=== PATIENT | female | born 1945 | race Caucasian/White ===

== ENCOUNTER 2016-09-14 08:28 | Day surgery (SDC) | payer MEDICARE ==
[2016-09-12 09:09] VITALS: BMI 36.6
[~2016-09-14 08:28] MED LIST: LACTATED RINGERS 1,000 ML IV SCH
[2016-09-14 09:19] VITALS: TEMP 97.1
[2016-09-14] MEDS ORDERED: PROPOFOL 10 MG/ML 20 ML VIAL IV ONE (09:28)
--- NOTE | 2016-09-14 09:47 | P.PCN ---
Date of Procedure: 09/14/16 Procedure(s) Performed: Brief history: Patient is a pleasant 71-year-old white female, scheduled for an elective upper endoscopy as well as colonoscopy as a part of evaluation of abdominal pain, change in bowel habits for the last 6 months duration. Procedure performed: Esophagogastroduodenoscopy with biopsy Colonoscopy Preoperative diagnosis: Abdominal pain Change in bowel habits Anesthesia: MAC Procedure: After informed consent was obtained from the patient was brought into the endoscopy unit and IV conscious sedation was administered by anesthesia under continuous monitoring. Initially upper endoscopy was done. The Olympus GF 160 video endoscope was inserted inserted into the mouth and esophagus intubated without any difficulty and was gradually advanced into the stomach and duodenum and carefully examined. The bulb and second part of the duodenum appeared normal. The scope was then withdrawn into the stomach adequately insufflated with air and upon careful examination the antrum had mild diffuse gastritis and biopsies were done from this area. The body, cardia and fundus appeared normal. The scope was then withdrawn into the esophagus. Mall hiatal hernia noted. The GE junction was located at 36 cm to the incisors. there was a 1 cm GE junction polyp identified and multiple biopsies were done from this area. The GE junction appeared regular with no erythema erosions or ulcerations. Rest of the esophagus appeared normal. Patient tolerated the procedure well. At this time the patient continued to remain sedation. Initial digital rectal examination was normal. Olympus CF 160 video colonoscope was then inserted into the rectum and gradually advanced to the cecum without any difficulty. Careful examination was performed as the scope was gradually being withdrawn. The prep was excellent. The cecum, ascending colon, transverse colon, descending colon, sigmoid colon and rectum appeared normal. diffuse scattered diverticulosis seen. Retroflexion was performed in the rectum andmild rectal prolapse was noted. Patient tolerated the procedure well. Impression: 1. Upper endoscopy revealed 1 cm GE junction polyp status post biopsy, small hiatal hernia and mild antral gastritis. 2. Colonoscopy revealed diffuse scattered diverticulosis and mild rectal prolapse Recommendations: Findings of this examination were discussed with the patient as well as her family. She was advised to follow with the biopsy results. She'll be seen in office in 2 weeks.
[2016-09-14 09:52] VITALS: RESP 16
[2016-09-14 10:11] VITALS: BP 125/70; PULSE 68
== END 2016-09-14 10:50 | disposition home or self-care (01) ==
LOC: ORWHC2ENDO 08:28
PROVIDERS: ATTEND Internal Medicine Gastroenterology
DX: K29.50 Unspecified chronic gastritis without bleeding (principal); D13.0 Benign neoplasm of esophagus; K20.0 Eosinophilic esophagitis; K44.9 Diaphragmatic hernia without obstruction or gangrene; K57.30 Diverticulosis of large intestine without perforation or abscess without bleeding; K62.3 Rectal prolapse; I10 Essential (primary) hypertension; I48.91 Unspecified atrial fibrillation; Z79.01 Long term (current) use of anticoagulants; Z79.899 Other long term (current) drug therapy; Z88.5 Allergy status to narcotic agent
CPT/HCPCS: 88305; 88312; 88342; 45378; 43239; J2704

== ENCOUNTER → 2016-10-25 | Outpatient (CLI) | payer MEDICARE, OTHER ==
[2016-10-25 11:24] LABS: Blood Urea Nitrogen 14 mg/dL (7-17); Non-African American GFR(MDRD) >60 (>60 ml/min/1.73 sqM)
--- NOTE | 2016-10-25 13:01 | CT ---
EXAMINATION TYPE: CT abdomen pelvis w con DATE OF EXAM: 10/25/2016 12:49 PM COMPARISON: 01/16/2015 INDICATION: Right upper quadrant DLP: 1470.5 mGycm, Automated exposure control for dose reduction was used. CONTRAST: 100 mL of Omnipaque 300. Study performed with Oral Contrast TECHNIQUE: Axial images were obtained from above the diaphragm to the pubic rami in the axial plane a t 5 mm thick sections. Reconstructed images are reviewed on the computer in the coronal plane. FINDINGS: Limited CT sections are obtained the lung bases. The lung bases are clear. Reflux of the distal eso phagus is evident. CT ABDOMEN: Liver: Several scattered hypodensities are present throughout the liver. These appear to have low den sity center suggestive for hepatic cysts. Spleen: Splenic cyst may be present. Couple of punctate calcified granuloma may be present. Pancreas: Normal Adrenal glands: The adrenal glands are normal. Gallbladder: Surgically absent Kidneys: No masses are evident. No hydronephrosis is present. Cortical renal cyst in the medial inf erior left kidney measuring 20 Hounsfield units and 1.4 cm in diameter. Delayed images were obtained through the kidneys, which remain unremarkable. Aorta: Vascular calcification is within the aorta. Inferior vena cava: Normal. CT PELVIS: Loops of bowel within the abdomen and pelvis are normal. There are loops of bowel which are incom pletely distended or lack oral contrast limiting their evaluation. Appendix: Normal as visualized. Urinary bladder: Normal. Genitourinary structures: Uterus and adnexal regions are normal Osseous structures: No suspicious lytic or sclerotic lesions. Facet changes are present within the daniel mbar spine. Suspicious abnormality under the right rib region where the patient complains of pain is not evident. Note is made of metallic foreign body within the musculature at the level of the liver. Series 3 image 24. IMPRESSIONS: 1. Renal cyst on left. Multiple hepatic cysts and probable splenic cysts are also present. 2. Suspicious abnormality right upper quadrant not identified. Old Radiopaque foreign body is within the musculature.
== END | disposition home or self-care (01) ==
LOC: RADCTMAIN 10:51
PROVIDERS: ATTEND Internal Medicine Gastroenterology
DX: N28.1 Cyst of kidney, acquired (principal); K76.89 Other specified diseases of liver
CPT/HCPCS: 82565; 84520; 74177; 36415; Q9967

== ENCOUNTER 2019-11-29 19:12 | Emergency (ER) | payer MEDICARE, OTHER ==
[2019-11-29 19:46] LABS: Basophils % (A) 0 %; Eosinophils # (A) 0.2 k/uL (0-0.7); Eosinophils % (A) 2 %; HCT 43.9 % (34.0-46.0); HGB 14.8 gm/dL (11.4-16.0); Lymphocytes # (A) 1.2 k/uL (1.0-4.8); Lymphocytes % (A) 12 %; MCH 29.8 pg (25.0-35.0); MCHC 33.8 g/dL (31.0-37.0); MCV 88.3 fL (80.0-100.0); Mean Platelet Volume 8.8; Monocytes # (A) 0.5 k/uL (0-1.0); Monocytes % (A) 5 %; Neutrophils # (A) 7.7 k/uL (1.3-7.7); Neutrophils % (A) 79 %; Platelet Count 150 k/uL (150-450); RBC 4.97 m/uL (3.80-5.40); RDW 14.1 % (11.5-15.5); WBC 9.7 k/uL (3.8-10.6)
[2019-11-29 19:50] LABS: Glucose,Whole Blood 109 mg/dL (75-99)
[2019-11-29 19:53] LABS: INR 2.2 (<1.2); Partial Thromboplastin Time 35.8 sec (22.0-30.0); Prothrombin Time 21.8 sec (9.0-12.0)
[2019-11-29 19:56] LABS: ALT 17 U/L (4-34); AST 28 U/L (14-36); African American GFR (CKD) >90 (>60 ml/min/1.73 sqM); Alcohol <10 mg/dL; Alkaline Phosphatase 68 U/L (38-126); Amylase 54 U/L (30-110); Anion Gap 6 mmol/L; Blood Urea Nitrogen 18 mg/dL (7-17); Carbon Dioxide 26 mmol/L (22-30); Chloride 105 mmol/L (98-107); Glucose 112 mg/dL (74-99); Non-African American GFR(CKD) 85 (>60 ml/min/1.73 sqM); Potassium 4.2 mmol/L (3.5-5.1); Sodium 137 mmol/L (137-145); Total Bilirubin 0.5 mg/dL (0.2-1.3); Total Protein 6.9 g/dL (6.3-8.2)
[2019-11-29 20:01] VITALS: RESP 16
[2019-11-29 20:06] LABS: Creatine Kinase MB 2.9 ng/mL (0.0-2.4); Troponin I 0.034 ng/mL (0.000-0.034)
--- NOTE | 2019-11-29 20:06 | CT ---
EXAMINATION TYPE: CT brain cspine wo con DATE OF EXAM: 11/29/2019 COMPARISON: 10/21/2014 HISTORY: fall Headache. Neck pain. CT DLP: 1516.4 mGycm Automated exposure control for dose reduction was used. There is some cerebral cortical atrophy. There is no mass effect nor midline shift. There is no sign of intracranial hemorrhage. The calvarium is intact. There is 2 cm mucous retention cyst right side s phenoid sinus. Cervical vertebra have normal alignment. Disc spaces are fairly normal. Posterior elements are intact . There is mild hypertrophic multilevel facet arthropathy. IMPRESSION: No acute abnormality of the cervical spine. No fracture. Negative CT scan of the brain. Brain unchanged compared to old exam.
--- NOTE | 2019-11-29 20:08 | ED ---
Trauma HPI - General Chief Complaint: Trauma Stated Complaint: Fall Time Seen by Provider: 11/29/19 19:20 Source: patient Mode of arrival: wheelchair Limitations: physical limitation - History of Present Illness Initial Comments: The patient is a 74-year-old female with past history of A. fib on Coumadin who presents emergency department after she fell off of a boat ladder and hit her head. She states she was climbing down from her nephew spoke which was on top of a trailer when she slipped, fell backwards and hit her head on the propeller. The patient does take Coumadin for her A. fib. She denies loss of consciousness. No headache, visual changes or neck pain. She reports that she fell onto her left side. Patient has left-sided flank pain, left shoulder abrasion and left knee pain. She took a dose of Tylenol prior to coming into the emergency room and. States that she didn't want to be seen however her forced her to come in. She denies any numbness, tingling or weakness in her extremities. She has been able to ambulate, slowly. Denies chest pain or shortness of breath. No abdominal pain. There are no other alleviating, precipitating or modifying factors - Related Data Home Medications Medication Instructions Recorded Confirmed Metoprolol Succinate [Toprol XL] 12.5 mg PO HS 01/16/15 09/14/16 Lisinopril [Zestril] 30 mg PO HS 09/12/16 09/14/16 Warfarin [Coumadin] 2.5 mg PO DAILY 09/12/16 09/14/16 amLODIPine [Norvasc] 10 mg PO DAILY 09/12/16 09/14/16 Allergies Allergy/AdvReac Type Severity Reaction Status Date / Time codeine Allergy Rapid Verified 11/29/19 20:01 Heart Rate Review of Systems ROS Statement: Those systems with pertinent positive or pertinent negative responses have been documented in the HPI. ROS Other: All systems not noted in ROS Statement are negative. Past Medical History Past Medical History: Atrial Fibrillation, Hypertension Additional Past Medical History / Comment(s): pain upper rt abdomen, "precancer" on arm History of Any Multi-Drug Resistant Organisms: None Reported Past Surgical History: Cholecystectomy Additional Past Surgical History / Comment(s): D&C Past Anesthesia/Blood Transfusion Reactions: No Reported Reaction Past Psychological History: No Psychological Hx Reported Smoking Status: Never smoker Past Alcohol Use History: None Reported Past Drug Use History: None Reported - Past Family History Mother Family Medical History: Cancer General Exam Limitations: physical limitation Course Vital Signs 11/29/19 11/29/19 19:17 22:25 Temperature 97.9 F 98.0 F Pulse Rate 60 58 L Respiratory 16 16 Rate Blood Pressure 216/82 168/88 O2 Sat by Pulse 96 98 Oximetry Medical Decision Making - Medical Decision Making Upon arrival the patient is probably placed in trauma bay 1. She has a fall from a height on anticoagulants and therefore she is activated as a level II trauma. Initial assessment demonstrates the airways pain. Patient has bilateral breath sounds. Facility assessed the patient is alert and oriented 3. Patient does have a hematoma noted to the left occiput. A small abrasion is noted without significant laceration. No neck pain and therefore cervical spine is cleared using NEXUS criteria. Patient is a sent over for a CT of her brain and cervical spine. I also performed x-rays the patient's left scapula, pelvis, chest x-ray with left rib study and left knee x-ray. Laboratory studies demonstrate a therapeutic INR 2.2. Hemoglobin 14.8. CK mildly elevated at 222. CT brain demonstrates no acute intracranial process. Nose cervical spine fractures. No appreciable fractures in the left scapula, ribs or left knee. Patient is able to get up and ambulate. I did perform a FAST exam which was negative on the patient. Patient feels comfortable with discharge at this time. She is to follow up with primary care physician. I informed her if she has any continued pain she may need repeat imaging for its patient understood. If she has any new or worsening symptoms she should return to the emergency room. Patient was in agreement treatment plan she is discharged home in stable condition - Lab Data Result diagrams: 11/29/19 19:32 11/29/19 19:32 Lab Results 11/29/19 11/29/19 11/29/19 Range/Units 19:32 19:32 19:32 WBC 9.7 (3.8-10.6) k/uL RBC 4.97 (3.80-5.40) m/uL Hgb 14.8 (11.4-16.0) gm/dL Hct 43.9 (34.0-46.0) % MCV 88.3 (80.0-100.0) fL MCH 29.8 (25.0-35.0) pg MCHC 33.8 (31.0-37.0) g/dL RDW 14.1 (11.5-15.5) % Plt Count 150 (150-450) k/uL Neutrophils % 79 % Lymphocytes % 12 % Monocytes % 5 % Eosinophils % 2 % Basophils % 0 % Neutrophils # 7.7 (1.3-7.7) k/uL Lymphocytes # 1.2 (1.0-4.8) k/uL Monocytes # 0.5 (0-1.0) k/uL Eosinophils # 0.2 (0-0.7) k/uL Basophils # 0.0 (0-0.2) k/uL PT (9.0-12.0) sec INR (<1.2) APTT (22.0-30.0) sec Sodium 137 (137-145) mmol/L Potassium 4.2 (3.5-5.1) mmol/L Chloride 105 (98-107) mmol/L Carbon Dioxide 26 (22-30) mmol/L Anion Gap 6 mmol/L BUN 18 H (7-17) mg/dL Creatinine 0.68 (0.52-1.04) mg/dL Est GFR (CKD-EPI)AfAm >90 (>60 ml/min/1.73 sqM) Est GFR (CKD-EPI)NonAf 85 (>60 ml/min/1.73 sqM) Glucose 112 H (74-99) mg/dL POC Glucose (mg/dL) (75-99) mg/dL POC Glu Pipe Smoking Machine Offbearer ID Plasma Lactic Acid Vicente (0.7-2.0) mmol/L Calcium 10.0 (8.4-10.2) mg/dL Total Bilirubin 0.5 (0.2-1.3) mg/dL AST 28 (14-36) U/L ALT 17 (4-34) U/L Alkaline Phosphatase 68 (38-126) U/L Total Creatine Kinase 222 H (30-135) U/L CK-MB (CK-2) 2.9 H (0.0-2.4) ng/mL CK-MB (CK-2) Rel Index 1.3 Troponin I 0.034 (0.000-0.034) ng/mL Total Protein 6.9 (6.3-8.2) g/dL Albumin 4.0 (3.5-5.0) g/dL Amylase 54 (30-110) U/L Lipase 84 (23-300) U/L Urine Color Urine Appearance (Clear) Urine pH (5.0-8.0) Ur Specific [place] (1.001-1.035) Urine Protein (Negative) Urine Glucose (UA) (Negative) Urine Ketones (Negative) Urine Blood (Negative) Urine Nitrite (Negative) Urine Bilirubin (Negative) Urine Urobilinogen (<2.0) mg/dL Ur Leukocyte Esterase (Negative) Urine Opiates Screen (NotDetected) Ur Oxycodone Screen (NotDetected) Urine Methadone Screen (NotDetected) Ur Propoxyphene Screen (NotDetected) Ur Barbiturates Screen (NotDetected) U Tricyclic Antidepress (NotDetected) Ur Phencyclidine Scrn (NotDetected) Ur Amphetamines Screen (NotDetected) U Methamphetamines Scrn (NotDetected) U Benzodiazepines Scrn (NotDetected) Urine Cocaine Screen (NotDetected) U Marijuana (THC) Screen (NotDetected) Serum Alcohol <10 mg/dL Blood Type Blood Type Confirm Blood Type Recheck Bld Type Recheck Status Antibody Screen Spec Expiration Date 11/29/19 11/29/19 11/29/19 Range/Units 19:32 19:32 19:32 WBC (3.8-10.6) k/uL RBC (3.80-5.40) m/uL Hgb (11.4-16.0) gm/dL Hct (34.0-46.0) % MCV (80.0-100.0) fL MCH (25.0-35.0) pg MCHC (31.0-37.0) g/dL RDW (11.5-15.5) % Plt Count (150-450) k/uL Neutrophils % % Lymphocytes % % Monocytes % % Eosinophils % % Basophils % % Neutrophils # (1.3-7.7) k/uL Lymphocytes # (1.0-4.8) k/uL Monocytes # (0-1.0) k/uL Eosinophils # (0-0.7) k/uL Basophils # (0-0.2) k/uL PT 21.8 H (9.0-12.0) sec INR 2.2 H (<1.2) APTT 35.8 H (22.0-30.0) sec Sodium (137-145) mmol/L Potassium (3.5-5.1) mmol/L Chloride (98-107) mmol/L Carbon Dioxide (22-30) mmol/L Anion Gap mmol/L BUN (7-17) mg/dL Creatinine (0.52-1.04) mg/dL Est GFR (CKD-EPI)AfAm (>60 ml/min/1.73 sqM) Est GFR (CKD-EPI)NonAf (>60 ml/min/1.73 sqM) Glucose (74-99) mg/dL POC Glucose (mg/dL) (75-99) mg/dL POC Glu Pipe Smoking Machine Offbearer ID Plasma Lactic Acid Vicente 1.1 (0.7-2.0) mmol/L Calcium (8.4-10.2) mg/dL Total Bilirubin (0.2-1.3) mg/dL AST (14-36) U/L ALT (4-34) U/L Alkaline Phosphatase (38-126) U/L Total Creatine Kinase (30-135) U/L CK-MB (CK-2) (0.0-2.4) ng/mL CK-MB (CK-2) Rel Index Troponin I (0.000-0.034) ng/mL Total Protein (6.3-8.2) g/dL Albumin (3.5-5.0) g/dL Amylase (30-110) U/L Lipase (23-300) U/L Urine Color Urine Appearance (Clear) Urine pH (5.0-8.0) Ur Specific [place] (1.001-1.035) Urine Protein (Negative) Urine Glucose (UA) (Negative) Urine Ketones (Negative) Urine Blood (Negative) Urine Nitrite (Negative) Urine Bilirubin (Negative) Urine Urobilinogen (<2.0) mg/dL Ur Leukocyte Esterase (Negative) Urine Opiates Screen (NotDetected) Ur Oxycodone Screen (NotDetected) Urine Methadone Screen (NotDetected) Ur Propoxyphene Screen (NotDetected) Ur Barbiturates Screen (NotDetected) U Tricyclic Antidepress (NotDetected) Ur Phencyclidine Scrn (NotDetected) Ur Amphetamines Screen (NotDetected) U Methamphetamines Scrn (NotDetected) U Benzodiazepines Scrn (NotDetected) Urine Cocaine Screen (NotDetected) U Marijuana (THC) Screen (NotDetected) Serum Alcohol mg/dL Blood Type A Positive Blood Type Confirm Blood Type Recheck No Previous Record Bld Type Recheck Status CABO Indicated Antibody Screen NEGATIVE Spec Expiration Date 12/02/2019233111/29/19 11/29/19 11/29/19 Range/Units 19:33 19:38 19:56 WBC (3.8-10.6) k/uL RBC (3.80-5.40) m/uL Hgb (11.4-16.0) gm/dL Hct (34.0-46.0) % MCV (80.0-100.0) fL MCH (25.0-35.0) pg MCHC (31.0-37.0) g/dL RDW (11.5-15.5) % Plt Count (150-450) k/uL Neutrophils % % Lymphocytes % % Monocytes % % Eosinophils % % Basophils % % Neutrophils # (1.3-7.7) k/uL Lymphocytes # (1.0-4.8) k/uL Monocytes # (0-1.0) k/uL Eosinophils # (0-0.7) k/uL Basophils # (0-0.2) k/uL PT (9.0-12.0) sec INR (<1.2) APTT (22.0-30.0) sec Sodium (137-145) mmol/L Potassium (3.5-5.1) mmol/L Chloride (98-107) mmol/L Carbon Dioxide (22-30) mmol/L Anion Gap mmol/L BUN (7-17) mg/dL Creatinine (0.52-1.04) mg/dL Est GFR (CKD-EPI)AfAm (>60 ml/min/1.73 sqM) Est GFR (CKD-EPI)NonAf (>60 ml/min/1.73 sqM) Glucose (74-99) mg/dL POC Glucose (mg/dL) 109 H (75-99) mg/dL POC Glu Pipe Smoking Machine Offbearer ID Leighann Martinez Plasma Lactic Acid Vicente (0.7-2.0) mmol/L Calcium (8.4-10.2) mg/dL Total Bilirubin (0.2-1.3) mg/dL AST (14-36) U/L ALT (4-34) U/L Alkaline Phosphatase (38-126) U/L Total Creatine Kinase (30-135) U/L CK-MB (CK-2) (0.0-2.4) ng/mL CK-MB (CK-2) Rel Index Troponin I (0.000-0.034) ng/mL Total Protein (6.3-8.2) g/dL Albumin (3.5-5.0) g/dL Amylase (30-110) U/L Lipase (23-300) U/L Urine Color Light Yellow Urine Appearance Clear (Clear) Urine pH 6.5 (5.0-8.0) Ur Specific [place] 1.005 (1.001-1.035) Urine Protein Negative (Negative) Urine Glucose (UA) Negative (Negative) Urine Ketones Negative (Negative) Urine Blood Negative (Negative) Urine Nitrite Negative (Negative) Urine Bilirubin Negative (Negative) Urine Urobilinogen <2.0 (<2.0) mg/dL Ur Leukocyte Esterase Negative (Negative) Urine Opiates Screen Not Detected (NotDetected) Ur Oxycodone Screen Not Detected (NotDetected) Urine Methadone Screen Not Detected (NotDetected) Ur Propoxyphene Screen Not Detected (NotDetected) Ur Barbiturates Screen Not Detected (NotDetected) U Tricyclic Antidepress Not Detected (NotDetected) Ur Phencyclidine Scrn Not Detected (NotDetected) Ur Amphetamines Screen Not Detected (NotDetected) U Methamphetamines Scrn Not Detected (NotDetected) U Benzodiazepines Scrn Not Detected (NotDetected) Urine Cocaine Screen Not Detected (NotDetected) U Marijuana (THC) Screen Not Detected (NotDetected) Serum Alcohol mg/dL Blood Type Blood Type Confirm A Positive Blood Type Recheck Bld Type Recheck Status Antibody Screen Spec Expiration Date - EKG Data EKG Comments: EKG demonstrates a sinus bradycardia with a ventricular rate of 59. SC interval is 158. QRS E4. QTC of 41. The signal elevations or depressions concerning for ischemic changes. Disposition Clinical Impression: Fall, On Coumadin for atrial fibrillation, Left knee pain, Left flank pain, Blunt head trauma Disposition: HOME SELF-CARE Condition: Stable Instructions (If sedation given, give patient instructions): Head Injury (ED) Additional Instructions: Please follow up with your primary care doctor. Return to the emergency room for any new or worsening symptoms Is patient prescribed a controlled substance at d/c from ED?: No Referrals: Nonstaff,Physician [Primary Care Provider] - 1-2 days Time of Disposition: 22:14
[2019-11-29 20:16] LABS: Appearance,Urine Clear (Clear); Bilirubin,Urine Negative (Negative); Blood,Urine Negative (Negative); Color,Urine Light Yellow; Glucose,Urine (UA) Negative (Negative); Ketones,Urine Negative (Negative); Leukocyte Esterase,Urine Negative (Negative); Nitrite,Urine Negative (Negative); PH, Urine 6.5 (5.0-8.0); Protein,Urine Negative (Negative); Specific Gravity,Urine 1.005 (1.001-1.035); Urobilinogen,Urine <2.0 mg/dL (<2.0)
--- NOTE | 2019-11-29 20:29 | XR ---
EXAMINATION TYPE: XR ribs LT w pa chest xray DATE OF EXAM: 11/29/2019 COMPARISON: 12/09/2009 chest x-ray HISTORY: Trauma. Pain. TECHNIQUE: 5 views FINDINGS: Heart is normal. Lungs are clear of infiltrate. There is no pleural effusion or pneumothora x. The left ribs appear intact. There is evidence of old healed fracture left fourth rib. IMPRESSION: No active cardiopulmonary disease. No acute rib fracture.
--- NOTE | 2019-11-29 20:30 | XR ---
EXAMINATION TYPE: XR scapula LT DATE OF EXAM: 11/29/2019 COMPARISON: NONE HISTORY: Pain TECHNIQUE: 2 views FINDINGS: I see no fracture nor dislocation. Glenohumeral joint is intact. There are no pathologic ca lcifications. IMPRESSION: Negative left shoulder exam.
--- NOTE | 2019-11-29 20:31 | XR ---
EXAMINATION TYPE: XR pelvis AP view DATE OF EXAM: 11/29/2019 COMPARISON: NONE HISTORY: Pain TECHNIQUE: 2 views FINDINGS: Pelvic ring is intact. Proximal femurs are intact. There is acetabular spurring. Sacroiliac joints are intact. IMPRESSION: No acute abnormality of the pelvis.
--- NOTE | 2019-11-29 20:32 | XR ---
EXAMINATION TYPE: XR knee complete LT DATE OF EXAM: 11/29/2019 COMPARISON: NONE HISTORY: Pain. Fall. TECHNIQUE: 3 views FINDINGS: There is slight narrowing of medial joint space. There is spurring of medial femoral and ti bial condyles. There is no sign of joint effusion. There is spurring on the anterior patella. IMPRESSION: Mild osteoarthritis. No fracture.
[2019-11-29 20:39] LABS: Amphetamine Screen,Urine Not Detected (NotDetected); Barbiturate Screen,Urine Not Detected (NotDetected); Benzodiazepines Screen,Urine Not Detected (NotDetected); Cocaine Screen,Urine Not Detected (NotDetected); Methadone Screen, Urine Not Detected (NotDetected); Opiate Screen,Urine Not Detected (NotDetected); Oxycodone Screen, Urine Not Detected (NotDetected); Phencyclidine Screen,Urine Not Detected (NotDetected); Tricyclic Antidepressant,Urine Not Detected (NotDetected); Urn Cannabinoid Scrn Not Detected (NotDetected)
[2019-11-29 23:45] VITALS: BP 168/88; PULSE 58; TEMP 98
== END 2019-11-29 22:00 | disposition home or self-care (01) ==
LOC: EC 19:12
DX: S00.03XA Contusion of scalp, initial encounter (principal); I48.91 Unspecified atrial fibrillation; R10.9 Unspecified abdominal pain; M25.562 Pain in left knee; I10 Essential (primary) hypertension; Z79.01 Long term (current) use of anticoagulants; Z79.899 Other long term (current) drug therapy; Z88.5 Allergy status to narcotic agent; W11.XXXA Fall on and from ladder, initial encounter; Y92.814 Boat as the place of occurrence of the external cause
CPT/HCPCS: 36415; 86900; 86901; 80053; 82150; 82550; 82553; 83605; 83690; 84484; 85025; 85610; 85730; 86850; 81003; 80306; 71101; 72170; 73010; 73562; 72125; 70450; 99284; G0480; 80320; 93005

== ENCOUNTER 2020-11-08 09:47 | Day surgery (SDC) | payer MEDICARE ==
[2020-11-04 14:19] VITALS: BMI 36.6
[~2020-11-08 09:47] MED LIST changes: +SODIUM CHLORIDE 0.9% 1,000 ML IV SCH; +ceFAZolin 1 GM in SODIUM CHLORIDE 0.9% 250 ML IRRIGATION PRN
[2020-11-08 10:11] VITALS: RESP 18; TEMP 97.7
[2020-11-08 10:26] LABS: Basophils # (A) 0.1 k/uL (0-0.2); Basophils % (A) 1 %; Eosinophils # (A) 0.1 k/uL (0-0.7); Eosinophils % (A) 2 %; HCT 45.2 % (34.0-46.0); HGB 15.6 gm/dL (11.4-16.0); Lymphocytes # (A) 1.5 k/uL (1.0-4.8); Lymphocytes % (A) 20 %; MCH 30.5 pg (25.0-35.0); MCHC 34.7 g/dL (31.0-37.0); MCV 87.9 fL (80.0-100.0); Mean Platelet Volume 8.5; Monocytes # (A) 0.5 k/uL (0-1.0); Monocytes % (A) 7 %; Neutrophils # (A) 5.1 k/uL (1.3-7.7); Neutrophils % (A) 70 %; Platelet Count 188 k/uL (150-450); RBC 5.14 m/uL (3.80-5.40); RDW 14.4 % (11.5-15.5); WBC 7.3 k/uL (3.8-10.6)
[2020-11-08 10:40] LABS: INR 1.4 (<1.2); Prothrombin Time 14.5 sec (9.0-12.0)
[2020-11-08] MEDS ORDERED: LIDOCAINE 1% INJ 10MG/ML (20 ML MDV) ONE ×3 (10:43→12:07)
[2020-11-08] MEDS ORDERED: PROPOFOL 10 MG/ML 20 ML VIAL IV ONE (11:05)
[2020-11-08] MEDS ORDERED: fentaNYL (PF) 50 MCG/ML 2 ML AMP ONE (11:05)
[2020-11-08] MEDS ORDERED: MIDAZOLAM 2 MG/2 ML VIAL ONE (11:05)
[2020-11-08] MEDS ORDERED: IOPAMIDOL-250 50ML BTL IV ONE (11:25)
[2020-11-08] MEDS ORDERED: LIDOCAINE 1% INJ 10MG/ML (20 ML MDV) SQ ONE (12:02)
[2020-11-08] MEDS ORDERED: ACETAMINOPHEN TAB 325 MG TAB PO PRN (13:36)
--- NOTE | 2020-11-08 13:50 | P.PCN ---
Preoperative Diagnosis: Left upper extremity venogram 50 mL IV dye injected in the left arm Patent left subclavian and left axillary venous system Plan Proceed with permanent pacemaker implantation
[2020-11-08] MEDS ORDERED: ACETAMINOPHEN IV (For NPO) 1,000 MG in EMPTY BAG 1 BAG IVPB ONE (14:00)
--- NOTE | 2020-11-08 14:17 | CE ---
CARDIAC ELECTROPHYSIOLOGY REPORT This is a patient of Dr. Hitchcock and Dr. Cheema who has paroxysmal atrial fibrillation with very symptomatic post-conversion pauses with associated dizziness and presyncope. She is brought in for a permanent pacemaker implantation. Intraoperatively, she had 1-1 conduction when the paced in the atrium at 160 beats per minute. Therefore a dual- chamber pacemaker was implanted. DIAGNOSIS: Sick sinus syndrome with post-conversion pauses, tachy-stef syndrome. The patient is brought to the EP lab in a fasting state. Written informed consent was obtained prior to the procedure. The left shoulder area was prepped and draped as per protocol. 1% lidocaine was used for local anesthesia. A 4 cm incision was made parallel to the deltopectoral groove, about 1.5 cm medial to it. The incision was carried down to the level of the pectoralis muscle. A subfascial pocket was made. Hemostasis was assured. The left axillary vein was accessed at 2 separate points under fluoroscopy and via appropriately-sized introducer sheaths 2 leads were positioned in the right heart. The atrial lead was a Medtronic model #5076, 45 cm in length and serial number [id number]. This was screwed in the right atrial appendage. P waves were between 1-2 mV with a prominent current of injury. The pacing impedance 532 ohms, pacing threshold 0.5 V at 0.4 milliseconds. 10 V test negative. The RV lead was positioned in the mid RV septum. R-waves greater than 9 mV. Pacing impedance of 646 ohms and pacing threshold 0.7 V at 0.4 milliseconds. A 10 V test was negative. Both leads were secured to the underlying pectoralis fascia using 2 nonabsorbable sutures. Pocket was irrigated with antibiotic solution. Leads were connected to the generator (Medtronic dual-chamber pacemaker. 0X DDR MRI, model number W1BR01, serial number [id number]. The leads and generator were then placed in subfascial pocket. The wound was closed in 3 layers and dressed per protocol. RESULTS: Successful dual-chamber pacemaker implantation for symptomatic sick sinus syndrome with post-conversion pauses following termination of paroxysmal atrial fibrillation episodes, associated with dizzy spells and presyncope. The patient also has a history of hypertension. Her dose of metoprolol will be increased to 50 mg twice daily and the dose of amlodipine will be increased to 5 mg p.o. daily. MMRANJANA / IJN: [id number] /
--- NOTE | 2020-11-08 14:22 | LTR ---
11/08/2020 RE: Paul Lily Dear Dr. Hitchcock. Lily Miller has sick sinus syndrome with symptomatic post-conversion pauses following second-degree atrial fibrillation termination. She underwent a dual chamber pacemaker implantation. Blood pressure is also elevated and we will increase the dose of metoprolol and amlodipine. She will continue to follow with you and Dr. Cheema as before. Thank you for entrusting us with the care of your patient. Warm regards, John Eaton MD. MALCOM / CHILO: [id number] /
--- NOTE | 2020-11-08 16:32 | XR ---
EXAMINATION TYPE: XR chest 1V portable DATE OF EXAM: 11/08/2020 COMPARISON: Chest x-ray 11/29/2019 HISTORY: Lead placement check TECHNIQUE: Single frontal view of the chest is obtained. FINDINGS: There has been interval placement of a generator in the left pectoral region, there are le ads in the right atrium and ventricle. There is no evident pneumothorax or pleural effusion. Cardiac mediastinal silhouette is within normal limits. There are overlying leads. IMPRESSION: No evident complication status post pacemaker placement.
[2020-11-08 17:08] VITALS: BP 184/79; PULSE 54
== END 2020-11-08 16:58 | disposition home or self-care (01) ==
LOC: CATHEP 09:47
PROVIDERS: ATTEND Internal Medicine Clinical Cardiac Electrophysiology
DX: I49.5 Sick sinus syndrome (principal); I48.0 Paroxysmal atrial fibrillation; I10 Essential (primary) hypertension; E78.2 Mixed hyperlipidemia; Z98.49 Cataract extraction status, unspecified eye; Z90.49 Acquired absence of other specified parts of digestive tract; Z97.2 Presence of dental prosthetic device (complete) (partial); Z79.01 Long term (current) use of anticoagulants; Z79.899 Other long term (current) drug therapy; Z88.5 Allergy status to narcotic agent
CPT/HCPCS: 33208; 80048; 85025; 85610; 87635; 71045; C1769 ×3; C1892; C1898; C1785; J2250; J0690; J2001; J3010; J0131; J2704; Q9966

== ENCOUNTER → 2023-12-05 | Outpatient (CLI) | payer MEDICARE ==
[2023-12-05 16:03] LABS: Basophils # (A) 0.05 X 10*3/uL (0.00-0.10); Basophils % (A) 0.7 %; Eosinophils # (A) 0.07 X 10*3/uL (0.04-0.35); HCT 41.9 % (37.2-46.3); HGB 13.6 g/dL (12.0-15.0); Lymphocytes # (A) 1.04 X 10*3/uL (0.90-5.00); Lymphocytes % (A) 15.3 %; MCH 29.8 pg (27.0-32.0); MCHC 32.5 g/dL (32.0-37.0); MCV 91.7 FL (80.0-97.0); Mean Platelet Volume 11.4 FL (9.5-12.2); Monocytes # (A) 0.61 X 10*3/uL (0.20-1.00); NRBC Per 100 WBC 0 X 10*3/uL (0.00-0.01); Neutrophils % (A) 73.6 %; Platelet Count 171 X 10*3/uL (140-440); RBC 4.57 X 10*6/uL (4.10-5.20)
[2023-12-05 16:22] LABS: ALT 31 U/L (8-44); AST 22 U/L (13-35); Albumin 3.9 g/dL (3.8-4.9); Albumin/Globulin Ratio 1.86 Ratio (1.60-3.17); Alkaline Phosphatase 79 U/L (41-126); Blood Urea Nitrogen 17.9 mg/dL (9.0-27.0); Carbon Dioxide 26.6 mmol/L (21.6-31.8); Chloride 104 mmol/L (96-109); Chol/HDL Ratio 3.56 Ratio; Globulin 2.1 g/dL (1.6-3.3); Glucose 97 mg/dL (70-110); LDL Cholesterol,Calculated 49.1 mg/dL (0.0-131.0); Magnesium 2.1 mg/dL (1.5-2.4); Potassium 4.1 mmol/L (3.5-5.5); Sodium 142 mmol/L (135-145); Total Bilirubin 0.9 mg/dL (0.3-1.2)
== END | disposition home or self-care (01) ==
LOC: LABWHC1 10:56
PROVIDERS: ATTEND Family Medicine
DX: I10 Essential (primary) hypertension (principal); R25.2 Cramp and spasm
CPT/HCPCS: 36415; 80053; 80061; 83735; 84443; 85025